=== PATIENT | male | born 1970 | race Caucasian/White ===

== ENCOUNTER 2019-11-07 09:01 | Inpatient (IN) | payer MEDICAID ==
[~2019-11-07] VITALS: Ht 180.3 cm; Wt 107.0 kg
[2019-11-07] MEDS ORDERED: ZOLPIDEM TARTRATE 10 MG TABLET PO PRN (10:30)
[2019-11-07] MEDS ORDERED: HALOPERIDOL 5 MG TABLET PO PRN (10:30)
[2019-11-07] MEDS ORDERED: LORazepam 2 MG TABLET PO PRN (10:30)
[2019-11-07 11:00] VITALS: BP 122/83
[2019-11-07] MEDS ORDERED: FURO20 PO (11:11)
[2019-11-07] MEDS ORDERED: OLAN10TA3 PO (11:11)
[2019-11-07] MEDS ORDERED: TRAZ150 PO (11:11)
[2019-11-07] MEDS ORDERED: BENZ1TAB10 PO (11:11)
[2019-11-07] MEDS ORDERED: FLUO-191 PO (11:11)
[2019-11-07] MEDS ORDERED: PROZ10 PO (11:11)
[2019-11-07] MEDS ORDERED: DIVA125SP PO (11:11)
[2019-11-07] MEDS ORDERED: DOCU-342 PO (11:11)
[2019-11-07] MEDS ORDERED: PRAZ2 PO (11:11)
[2019-11-07] MEDS ORDERED: MONT10TA21 PO (11:11)
[2019-11-07] MEDS ORDERED: ZOLP10TA7 PO (11:11)
[2019-11-07] MEDS ORDERED: CALC-1238 PO (11:11)
[2019-11-07] MEDS ORDERED: OMEP20 PO (11:11)
[2019-11-07] MEDS ORDERED: PNEUMOCOCCAL VACCINE POLYVALENT 0.5 ML VIAL [PPSV23] IM ONE (12:15)
[2019-11-07 12:41] VITALS: BP 134/73
[2019-11-07 13:07] VITALS: BP 134/73
[2019-11-07] MEDS: PRAZOSIN HCL 2 MG CAPSULE PO SCH (13:15)
[2019-11-07] MEDS: MONTELUKAST SODIUM 10 MG TABLET PO SCH (13:15)
[2019-11-07] MEDS: DOCUSATE SODIUM 250 MG CAPSULE PO SCH (14:03)
[2019-11-07] MEDS: OMEPRAZOLE 20 MG CAPSULE PO SCH (14:03)
[2019-11-07] MEDS: FUROSEMIDE 20 MG TABLET PO SCH (14:03)
[2019-11-07 16:00] VITALS: BP 121/68
[2019-11-08 06:39] VITALS: BP 112/66
[2019-11-08] MEDS: MONTELUKAST SODIUM 10 MG TABLET PO SCH (08:41)
[2019-11-08] MEDS: PRAZOSIN HCL 2 MG CAPSULE PO SCH (08:41)
[2019-11-08] MEDS: OMEPRAZOLE 20 MG CAPSULE PO SCH (08:41)
[2019-11-08] MEDS: FUROSEMIDE 20 MG TABLET PO SCH (08:41)
[2019-11-08] MEDS: DOCUSATE SODIUM 250 MG CAPSULE PO SCH (08:41)
[2019-11-08] MEDS: OLANZapine 7.5 MG TABLET PO SCH (08:41)
[2019-11-08] MEDS: BENZTROPINE MESYLATE 1 MG TABLET PO SCH ×2 (08:41→16:56)
[2019-11-08] MEDS: FLUoxetine HCL 20 MG CAPSULE PO SCH (08:43)
[2019-11-08 16:13] VITALS: BP 106/63
[2019-11-08] MEDS: TraZODone HCL 50 MG TABLET PO SCH (20:13)
[2019-11-08] MEDS: DIVALPROEX SODIUM 500 MG DR TABLET PO SCH (20:13)
[2019-11-09 01:41] VITALS: BP 131/79
[2019-11-09] MEDS ORDERED: PETROLATUM,WHITE 28 GM JELLY TP PRN (08:15)
[2019-11-09 09:00] VITALS: BP 114/75
[2019-11-09] MEDS: MONTELUKAST SODIUM 10 MG TABLET PO SCH (09:10)
[2019-11-09] MEDS: OMEPRAZOLE 20 MG CAPSULE PO SCH (09:10)
[2019-11-09] MEDS: FUROSEMIDE 20 MG TABLET PO SCH (09:10)
[2019-11-09] MEDS: OLANZapine 7.5 MG TABLET PO SCH (09:10)
[2019-11-09] MEDS: DOCUSATE SODIUM 250 MG CAPSULE PO SCH (09:10)
[2019-11-09] MEDS: FLUoxetine HCL 20 MG CAPSULE PO SCH (09:10)
[2019-11-09] MEDS: BENZTROPINE MESYLATE 1 MG TABLET PO SCH ×2 (09:12→17:00)
[2019-11-09] MEDS: PRAZOSIN HCL 2 MG CAPSULE PO SCH (09:42)
[2019-11-09 11:45] VITALS: BP 134/65
[2019-11-09 12:00] VITALS: BP_SYST 134; BP_SYST 67; BP_DIAS 35
[2019-11-09 12:04] LABS: GLUCOMETER DEV NAME(LOC) BV3S.; GLUCOSE,POINT OF CARE 86 MG/DL (70-110)
[2019-11-09] MEDS ORDERED: TRAZ-252 PO (14:57)
[2019-11-09] MEDS ORDERED: DIVA-78 PO (14:58)
[2019-11-09] MEDS ORDERED: OS500 PO (14:58)
[2019-11-09 19:32] VITALS: BP 126/74
[2019-11-09] MEDS: DIVALPROEX SODIUM 500 MG DR TABLET PO SCH (20:18)
[2019-11-09] MEDS: TraZODone HCL 50 MG TABLET PO SCH (20:18)
[2019-11-10 05:19] VITALS: BP 117/76
[2019-11-10 08:17] VITALS: BP 127/42
[2019-11-10] MEDS: FLUoxetine HCL 20 MG CAPSULE PO SCH (09:48)
[2019-11-10] MEDS: OMEPRAZOLE 20 MG CAPSULE PO SCH (09:48)
[2019-11-10] MEDS: MONTELUKAST SODIUM 10 MG TABLET PO SCH (09:48)
[2019-11-10] MEDS: PRAZOSIN HCL 2 MG CAPSULE PO SCH (09:48)
[2019-11-10] MEDS: OLANZapine 7.5 MG TABLET PO SCH (09:48)
[2019-11-10] MEDS: FUROSEMIDE 20 MG TABLET PO SCH (09:49)
[2019-11-10] MEDS: DOCUSATE SODIUM 250 MG CAPSULE PO SCH (09:49)
[2019-11-10] MEDS: BENZTROPINE MESYLATE 1 MG TABLET PO SCH (09:49)
[2019-11-10] MEDS ORDERED: FURO20 PO (12:50)
[2019-11-10] MEDS ORDERED: DOCU-342 PO (12:50)
[2019-11-10] MEDS ORDERED: BENZ1TAB10 PO (12:50)
[2019-11-10] MEDS ORDERED: OLAN7.5T2 PO (12:50)
[2019-11-10] MEDS ORDERED: OMEP20 PO (12:50)
[2019-11-10] MEDS ORDERED: PRAZ2 PO (12:50)
[2019-11-10] MEDS ORDERED: FLUO-191 PO (12:50)
[2019-11-10] MEDS ORDERED: MONT10TA21 PO (12:50)
[2019-11-10] MEDS ORDERED: DIVA500T52 PO (12:50)
[2019-11-10] MEDS ORDERED: TRAZ-184 PO (12:50)
== END 2019-11-10 16:45 | disposition home or self-care (01) | DRG 750 ==
LOC: B3A 10:42
PROVIDERS: ADMIT Psychiatry & Neurology Psychiatry; ATTEND Psychiatry & Neurology Psychiatry
DX: F25.9 Schizoaffective disorder, unspecified (principal); R56.9 Unspecified convulsions; R45.851 Suicidal ideations; I10 Essential (primary) hypertension; F10.10 Alcohol abuse, uncomplicated; R45.1 Restlessness and agitation; Z87.891 Personal history of nicotine dependence
CPT/HCPCS: 90732

== ENCOUNTER 2019-11-09 12:49 | Emergency (ER) | payer MEDICAID, OTHER ==
[~2019-11-09] VITALS: Ht 180.3 cm; Wt 95.5 kg
[~2019-11-09 12:49] MED LIST: BENZ1TAB10 PO; CALC-1238 PO; DIVA125SP PO; DOCU-342 PO; FLUO-191 PO; FURO20 PO; MONT10TA21 PO; OLAN10TA3 PO; OMEP20 PO; PRAZ2 PO; PROZ10 PO; TRAZ150 PO; ZOLP10TA7 PO
[2019-11-09 13:52] LABS: BASOPHILS % (AUTO) 0.8 % (0.0-2.0); EOSINOPHILS % (AUTO) 2.5 % (1.0-6.0); HEMATOCRIT 44.1 % (41-53); HEMOGLOBIN 14.5 g/dL (13.5-17.5); LYMPHOCYTES # (AUTO) 2.1 K/uL (1.0-4.8); LYMPHOCYTES % (AUTO) 31.3 % (22.0-44.0); MEAN CORPUSCULAR HEMOGLOBIN 30.6 pg (26.0-34.0); MEAN CORPUSCULAR HGB CONC 32.9 G/dL (31.0-37.0); MEAN CORPUSCULAR VOLUME 93 fL (80-100); MONOCYTES # (AUTO) 0.9 K/uL (0.1-1.0); MONOCYTES % (AUTO) 13.8 % (2.0-9.0); NEUTROPHILS # (AUTO) 3.4 K/uL (1.8-7.7); NEUTROPHILS % (AUTO) 51.6 % (40.0-70.0); PLATELET COUNT (AUTO) 177 K/uL (150-450); RED BLOOD CELL COUNT(AUTO) 4.73 MIL/uL (4.50-5.90); RED CELL DISTRIBUTION WIDTH 13.7 % (11.5-14.5)
[2019-11-09 14:10] LABS: ANION GAP 7 mmol/L (8-16); CALCIUM, TOTAL 9.5 mg/dL (8.8-10.5); CARBON DIOXIDE 31 mmol/L (22-29); CHLORIDE 104 mmol/L (98-107); CREATININE 1.05 mg/dL (0.60-1.30); GLOMERULAR FILTR. RATE CALC > 60 mL/min (>60); GLUCOSE,RANDOM 96 mg/dL (70-110); POTASSIUM 4.4 mmol/L (3.5-5.1); SODIUM SERUM 142 mmol/L (136-145); UREA NITROGEN, BLOOD 24 mg/dL (7-18)
[2019-11-09 14:15] LABS: ALANINE AMINOTRANSFERASE 31 U/L (12-78); ALBUMIN 3.9 g/dL (3.4-5.0); ALKALINE PHOSPHATASE 72 U/L (46-116); ASPARTATE AMINOTRANSFERASE 17 U/L (15-37); BILIRUBIN,TOTAL 0.4 mg/dL (0.1-1.0); TOTAL PROTEIN, SERUM 7.9 g/dL (6.4-8.2)
[2019-11-09 14:52] VITALS: BP 130/80
[2019-11-09] MEDS ORDERED: TRAZ-252 PO (14:57)
[2019-11-09] MEDS ORDERED: DIVA-78 PO (14:58)
[2019-11-09] MEDS ORDERED: OS500 PO (14:58)
[2019-11-09] MEDS ORDERED: ONDANSETRON HCL 4 MG TABLET PO ONE (15:00)
[2019-11-09] MEDS ORDERED: MECLIZINE HCL 25 MG TABLET PO ONE (15:00)
[2019-11-09] MEDS ORDERED: ACETAMINOPHEN 500 MG TABLET PO ONE (15:00)
[2019-11-09 15:27] LABS: VALPROIC ACID 24 mcg/mL (50-100)
[2019-11-10] MEDS ORDERED: DOCU-342 PO (12:50)
[2019-11-10] MEDS ORDERED: DIVA500T52 PO (12:50)
[2019-11-10] MEDS ORDERED: TRAZ-184 PO (12:50)
[2019-11-10] MEDS ORDERED: OLAN7.5T2 PO (12:50)
[2019-11-10] MEDS ORDERED: BENZ1TAB10 PO (12:50)
[2019-11-10] MEDS ORDERED: FURO20 PO (12:50)
[2019-11-10] MEDS ORDERED: MONT10TA21 PO (12:50)
[2019-11-10] MEDS ORDERED: FLUO-191 PO (12:50)
[2019-11-10] MEDS ORDERED: OMEP20 PO (12:50)
[2019-11-10] MEDS ORDERED: PRAZ2 PO (12:50)
== END 2019-11-09 19:22 | disposition home or self-care (01) ==
LOC: EMS 12:49
DX: R42 Dizziness and giddiness (principal); M79.645 Pain in left finger(s); F20.9 Schizophrenia, unspecified; I10 Essential (primary) hypertension; Z79.899 Other long term (current) drug therapy; Z88.8 Allergy status to other drugs, medicaments and biological substances; W18.39XA Other fall on same level, initial encounter; Y93.89 Activity, other specified; Y92.89 Other specified places as the place of occurrence of the external cause; Y99.8 Other external cause status
CPT/HCPCS: 29130; 36415; 70450; 71045; 73130; 80053; 80164; 84484; 85025; 93005; 99284; Q0162; 29280

== ENCOUNTER 2022-11-10 18:03 | Inpatient (IN) | payer MEDICAID, OTHER ==
[~2022-11-10] VITALS: Ht 180.3 cm; Wt 107.5 kg
[~2022-11-10 18:03] MED LIST changes: -BENZ1TAB10 PO; +BENZ1TAB96 PO; -CALC-1238 PO; -DIVA125SP PO; +DIVA500T53 PO; -DOCU-342 PO; +DOCU-350 PO; +FLUO-177 PO; -FLUO-191 PO; +MONT-35 PO; -MONT10TA21 PO; -OLAN10TA3 PO; +OLAN7.5T22 PO; -PROZ10 PO; +TRAZ-184 PO; -TRAZ150 PO; -ZOLP10TA7 PO
[2022-11-10] MEDS ORDERED: DEUT9TAB PO (19:10)
[2022-11-10] MEDS ORDERED: LORA10TA7 PO (19:10)
[2022-11-10] MEDS ORDERED: OS500 PO (19:10)
[2022-11-10] MEDS ORDERED: LINA145C PO (19:10)
[2022-11-10 20:35] LABS: BASOPHILS % (AUTO) 0.7 % (0.0-2.0); EOSINOPHILS % (AUTO) 2.7 % (1.0-6.0); HEMATOCRIT 40.8 % (41-53); HEMOGLOBIN 13.3 g/dL (13.5-17.5); LYMPHOCYTES # (AUTO) 1.5 K/uL (1.0-4.8); MEAN CORPUSCULAR HGB CONC 32.7 G/dL (31.0-37.0); MEAN CORPUSCULAR VOLUME 92 fL (80-100); MONOCYTES # (AUTO) 0.7 K/uL (0.1-1.0); MONOCYTES % (AUTO) 11.1 % (2.0-9.0); NEUTROPHILS % (AUTO) 62.5 % (40.0-70.0); PLATELET COUNT (AUTO) 172 K/uL (150-450); RED BLOOD CELL COUNT(AUTO) 4.45 MIL/uL (4.50-5.90); RED CELL DISTRIBUTION WIDTH 13.8 % (11.5-14.5)
[2022-11-10 20:45] LABS: ANION GAP 8 mmol/L (8-16); CALCIUM, TOTAL 9.1 mg/dL (8.8-10.5); CARBON DIOXIDE 32 mmol/L (22-29); CHLORIDE 103 mmol/L (98-107); CREATININE 1.05 mg/dL (0.60-1.30); GLOMERULAR FILTR. RATE CALC > 60 mL/min (>60); GLUCOSE,RANDOM 107 mg/dL (70-110); POTASSIUM 3.9 mmol/L (3.5-5.1); SODIUM SERUM 143 mmol/L (136-145); UREA NITROGEN, BLOOD 17 mg/dL (7-18)
[2022-11-10] MEDS ORDERED: LORazepam 2 MG TABLET PO ONE (20:45)
[2022-11-10 20:51] LABS: ALANINE AMINOTRANSFERASE 29 U/L (12-78); ALBUMIN 3.8 g/dL (3.4-5.0); ALKALINE PHOSPHATASE 100 U/L (46-116); ASPARTATE AMINOTRANSFERASE 15 U/L (15-37); BILIRUBIN,TOTAL 0.2 mg/dL (0.1-1.0); TOTAL PROTEIN, SERUM 7.9 g/dL (6.4-8.2)
[2022-11-10 21:15] LABS: COVID AG,FIA SOURCE NASOPHARYNGEAL
[2022-11-10] MEDS ORDERED: OLANZapine 5 MG TABLET PO ONE (21:15)
[2022-11-10] MEDS ORDERED: HALOPERIDOL 5 MG TABLET PO PRN (22:45)
[2022-11-10] MEDS ORDERED: LORazepam 2 MG TABLET PO PRN (22:45)
[2022-11-11 03:39] VITALS: BP 124/78
[2022-11-11] MEDS ORDERED: PNEUMOCOCCAL VACCINE POLYVALENT 0.5 ML VIAL [PPSV23] IM. ONE (04:15)
[2022-11-11 08:00] VITALS: BP 127/65
[2022-11-11 16:00] VITALS: BP 127/71
[2022-11-11] MEDS: FUROSEMIDE 20 MG TABLET PO SCH (16:18)
[2022-11-11] MEDS: CALCIUM [CALCIUM CARB 1250MG] 500 MG TABLET PO SCH (16:18)
[2022-11-11] MEDS: DIVALPROEX SODIUM 500 MG DR TABLET PO SCH (16:19)
[2022-11-11] MEDS: LITHIUM CARBONATE 300 MG CAPSULE PO SCH (21:36)
[2022-11-11] MEDS: OLANZapine 10 MG TABLET PO SCH (21:37)
[2022-11-11] MEDS: ZOLPIDEM TARTRATE 10 MG TABLET PO PRN (21:37)
[2022-11-11] MEDS: MONTELUKAST SODIUM 10 MG TABLET PO SCH (21:38)
[2022-11-11] MEDS ORDERED: ALBUTEROL SULFATE HFA 90 MCG/PUFF 8 GM INHALER IH PRN (21:45)
[2022-11-11] MEDS ORDERED: LOPERAMIDE HCL 2 MG CAPSULE PO PRN (21:45)
[2022-11-11] MEDS ORDERED: CloNIDine HCL 0.1 MG TABLET PO PRN (21:45)
[2022-11-11] MEDS ORDERED: BENZOCAINE/MENTHOL LOZENGE PO PRN (21:45)
[2022-11-11] MEDS ORDERED: ONDANSETRON HCL 4 MG TABLET PO PRN (21:45)
[2022-11-11] MEDS ORDERED: ACETAMINOPHEN 325 MG TABLET PO PRN (21:45)
[2022-11-11] MEDS ORDERED: BACITRACIN 28 GM OINTMENT TP PRN (21:45)
[2022-11-11] MEDS ORDERED: DOCUSATE SODIUM 100 MG CAPSULE PO PRN (21:45)
[2022-11-11] MEDS ORDERED: PETROLATUM,WHITE 28 GM JELLY TP PRN (21:45)
[2022-11-11] MEDS ORDERED: MAG HYDROX/AL HYDROX/SIMETH ES 30 ML SUSPENSION UDCUP PO PRN (21:45)
[2022-11-11] MEDS ORDERED: OMEPRAZOLE 20 MG CAPSULE PO PRN (21:45)
[2022-11-11] MEDS ORDERED: IBUPROFEN 600 MG TABLET PO PRN (21:45)
[2022-11-11] MEDS ORDERED: MAGNESIUM HYDROXIDE SUSPENSION 30 ML UDCUP PO PRN (21:45)
[2022-11-12] MEDS: LINACLOTIDE 145 MCG CAPSULE PO SCH ×2 (06:44→07:04)
[2022-11-12 08:38] VITALS: BP 114/69
[2022-11-12] MEDS: FUROSEMIDE 20 MG TABLET PO SCH ×2 (08:39→15:57)
[2022-11-12] MEDS: DOCUSATE SODIUM 250 MG CAPSULE PO SCH (08:39)
[2022-11-12] MEDS: OMEPRAZOLE 20 MG CAPSULE PO SCH (08:40)
[2022-11-12] MEDS: CALCIUM [CALCIUM CARB 1250MG] 500 MG TABLET PO SCH ×2 (08:40→15:57)
[2022-11-12] MEDS: DIVALPROEX SODIUM 500 MG DR TABLET PO SCH ×2 (08:40→15:57)
[2022-11-12] MEDS: LORATADINE 10 MG TABLET PO SCH (08:40)
[2022-11-12] MEDS: LITHIUM CARBONATE 300 MG CAPSULE PO SCH ×2 (08:40→20:40)
[2022-11-12 16:05] VITALS: BP 121/69
[2022-11-12] MEDS: MONTELUKAST SODIUM 10 MG TABLET PO SCH (20:40)
[2022-11-12] MEDS: OLANZapine 10 MG TABLET PO SCH (20:40)
[2022-11-13] MEDS: LINACLOTIDE 145 MCG CAPSULE PO SCH (06:43)
[2022-11-13] MEDS: OMEPRAZOLE 20 MG CAPSULE PO SCH (08:52)
[2022-11-13] MEDS: CALCIUM [CALCIUM CARB 1250MG] 500 MG TABLET PO SCH ×2 (08:52→16:16)
[2022-11-13] MEDS: LITHIUM CARBONATE 300 MG CAPSULE PO SCH ×2 (08:52→21:15)
[2022-11-13] MEDS: DIVALPROEX SODIUM 500 MG DR TABLET PO SCH ×2 (08:52→16:16)
[2022-11-13] MEDS: DOCUSATE SODIUM 250 MG CAPSULE PO SCH (08:52)
[2022-11-13] MEDS: LORATADINE 10 MG TABLET PO SCH (08:53)
[2022-11-13] MEDS: FUROSEMIDE 20 MG TABLET PO SCH ×2 (08:53→16:16)
[2022-11-13 10:03] VITALS: BP 129/72
[2022-11-13 17:14] VITALS: BP 133/78
[2022-11-13] MEDS: ZOLPIDEM TARTRATE 10 MG TABLET PO PRN (21:16)
[2022-11-13] MEDS: OLANZapine 10 MG TABLET PO SCH (21:16)
[2022-11-13] MEDS: MONTELUKAST SODIUM 10 MG TABLET PO SCH (21:16)
[2022-11-14] MEDS: LINACLOTIDE 145 MCG CAPSULE PO SCH (06:45)
[2022-11-14] MEDS: CALCIUM [CALCIUM CARB 1250MG] 500 MG TABLET PO SCH ×2 (08:31→16:35)
[2022-11-14] MEDS: OMEPRAZOLE 20 MG CAPSULE PO SCH (08:31)
[2022-11-14] MEDS: DIVALPROEX SODIUM 500 MG DR TABLET PO SCH ×2 (08:31→16:35)
[2022-11-14] MEDS: LITHIUM CARBONATE 300 MG CAPSULE PO SCH ×2 (08:31→20:57)
[2022-11-14] MEDS: DOCUSATE SODIUM 250 MG CAPSULE PO SCH (08:31)
[2022-11-14] MEDS: LORATADINE 10 MG TABLET PO SCH (08:31)
[2022-11-14] MEDS: FUROSEMIDE 20 MG TABLET PO SCH ×2 (08:31→16:35)
[2022-11-14 12:48] VITALS: BP 137/78
[2022-11-14 17:20] VITALS: BP 127/80
[2022-11-14] MEDS: OLANZapine 10 MG TABLET PO SCH (20:57)
[2022-11-14] MEDS: MONTELUKAST SODIUM 10 MG TABLET PO SCH (20:58)
[2022-11-15] MEDS: LINACLOTIDE 145 MCG CAPSULE PO SCH (06:07)
[2022-11-15 08:06] VITALS: BP 142/76
[2022-11-15] MEDS: CALCIUM [CALCIUM CARB 1250MG] 500 MG TABLET PO SCH (08:29)
[2022-11-15] MEDS: FUROSEMIDE 20 MG TABLET PO SCH (08:29)
[2022-11-15] MEDS: LITHIUM CARBONATE 300 MG CAPSULE PO SCH (08:29)
[2022-11-15] MEDS: LORATADINE 10 MG TABLET PO SCH (08:29)
[2022-11-15] MEDS: DIVALPROEX SODIUM 500 MG DR TABLET PO SCH (08:29)
[2022-11-15] MEDS: DOCUSATE SODIUM 250 MG CAPSULE PO SCH (08:29)
[2022-11-15] MEDS: OMEPRAZOLE 20 MG CAPSULE PO SCH (08:29)
[2022-11-15 09:01] LABS: LITHIUM 0.53 mmol/L (0.60-1.20)
[2022-11-15] MEDS ORDERED: OLAN10 PO (10:50)
[2022-11-15] MEDS ORDERED: LITH300C3 PO (10:50)
[2022-11-15] MEDS ORDERED: DIVA-112 PO (10:50)
== END 2022-11-15 15:46 | disposition home or self-care (01) | DRG 750 ==
LOC: EMS 18:12 → 3EI 11-11 01:00
PROVIDERS: ADMIT Psychiatry & Neurology Psychiatry; ATTEND Psychiatry & Neurology Psychiatry
DX: F25.1 Schizoaffective disorder, depressive type (principal); F70 Mild intellectual disabilities; E66.9 Obesity, unspecified; F41.9 Anxiety disorder, unspecified; I10 Essential (primary) hypertension; Z20.822 Contact with and (suspected) exposure to COVID-19; J45.909 Unspecified asthma, uncomplicated; G40.909 Epilepsy, unspecified, not intractable, without status epilepticus; G47.00 Insomnia, unspecified; K59.00 Constipation, unspecified; K21.9 Gastro-esophageal reflux disease without esophagitis; Z88.8 Allergy status to other drugs, medicaments and biological substances; Z68.33 Body mass index [BMI] 33.0-33.9, adult
CPT/HCPCS: 80053; 80164; 80178; 85025; 87081; 99285; G0480; Q9967